=== PATIENT | male | born 1980 | race Caucasian/White ===

== ENCOUNTER 2022-02-22 18:16 | Observation (INO) ==
[2022-02-22] MEDS ORDERED: *HR* OxyCODONE Immed Rel 5 MG TABLET PO PRN (22:59)
[2022-02-22] MEDS ORDERED: Ondansetron 4 MG/2 ML VIAL IVP PRN (22:59)
[2022-02-22] MEDS ORDERED: *HR* Promethazine 25 MG/ML VIAL IM PRN (22:59)
[2022-02-22] MEDS ORDERED: *HR* HYDROcodone/Acet 5/325 mg TABLET PO PRN (22:59)
[2022-02-22] MEDS ORDERED: Acetaminophen 325 MG TABLET PO PRN (22:59)
[2022-02-22] MEDS ORDERED: Naloxone 0.4 MG/ML INJ IVP PRN (22:59)
[2022-02-23 03:32] LABS: Basophils % 0.2 %; Eosinophils # 0.1 K/mcL (0.0-0.6); Eosinophils % 0.7 %; Hematocrit 43.1 % (37.5-50.1); Hemoglobin 14.3 g/dL (12.9-16.9); Immature Granulocytes % 0.4 % (0-4); Lymphocytes # 2.6 K/mcL (0.6-4.6); Lymphocytes % 18.7 %; Mean Corpuscular HGB Conc 33.2 g/dL (31.6-35.5); Mean Corpuscular Volume 90.5 fL (83.0-100.0); Mean Platelet Volume 9.1 fL (9.4-12.4); Monocytes # 1.1 K/mcL (0.0-1.3); Neutrophils # 10.1 K/mcL (1.6-8.9); Platelet Count 365 K/mcL (140-400); Red Blood Count 4.76 M/mcL (4.19-5.50); Red Cell Distribution Width 13.3 % (11.5-14.5)
[2022-02-23 03:39] LABS: INR 1.1; Prothrombin Time 12.3 Seconds (9.4-12.1)
[2022-02-23 03:46] LABS: BUN/Creatinine Ratio 11 (6-26); Blood Urea Nitrogen 10 mg/dL (6-20); Calcium 9.2 mg/dL (8.6-10.3); Carbon Dioxide 30 mEq/L (23-29); Chloride 100 mEq/L (98-107); Glucose 109 mg/dL (70-105); Osmolality,Calculated 284 (280-300); Potassium 3.5 mEq/L (3.5-5.1); Sodium 137 mEq/L (136-145); eGFR For African Americans > 60 (> 60); eGFR For Non-African Americans > 60 (> 60)
[2022-02-23] MEDS ORDERED: Ondansetron 4 MG/2 ML VIAL ONE (10:13)
[2022-02-23] MEDS ORDERED: *HR* Propofol 200 MG/20 ML VIAL IVP ONE (10:13)
[2022-02-23] MEDS ORDERED: *HR* FentaNYL (PF) 100 MCG/2 ML VIAL ONE ×2 (10:13→11:58)
[2022-02-23] MEDS ORDERED: Lidocaine -MPF 2% 5 ML VIAL ONE (10:13)
[2022-02-23] MEDS ORDERED: *HR* Rocuronium Bromide 50 MG/5 ML VIAL ONE (10:13)
[2022-02-23] MEDS ORDERED: Lidocaine -MPF 4% 5 ML AMPUL ONE (10:13)
[2022-02-23] MEDS ORDERED: *HR* Midazolam HCl 2 MG/2 ML VIAL ONE (10:13)
[2022-02-23] MEDS ORDERED: Famotidine 20 MG/2 ML VIAL IVP ONE (10:17)
[2022-02-23] MEDS ORDERED: Acetaminophen IV 1,000 MG/100 ML BAG IVPB ONE ×2 (10:18→11:55)
[2022-02-23] MEDS ORDERED: Ondansetron 4 MG/2 ML VIAL IVP PRN ×2 (10:51→14:14)
[2022-02-23] MEDS ORDERED: *HR* HYDROmorphone PF 0.5 MG/0.5 ML SYRINGE IVP PRN (10:51)
[2022-02-23] MEDS ORDERED: 0.9 % Sodium Chloride 1,000 ML IVC SCH (13:15)
[2022-02-23] MEDS ORDERED: *HR* Promethazine 25 MG/ML VIAL IM PRN (14:14)
[2022-02-23] MEDS ORDERED: Acetaminophen 325 MG TABLET PO PRN (14:14)
[2022-02-23] MEDS ORDERED: CeFAZolin 2,000 MG/120 ML BAG IVPB ONE (14:14)
[2022-02-23] MEDS ORDERED: *HR* HYDROcodone/Acet 5/325 mg TABLET PO PRN (14:14)
[2022-02-23] MEDS ORDERED: Naloxone 0.4 MG/ML INJ IVP PRN (14:14)
[2022-02-23] MEDS: CeFAZolin 2,000 MG/120 ML BAG IVPB ONE ×2 (14:16→14:39)
[2022-02-23] MEDS: *HR* OxyCODONE Immed Rel 5 MG TABLET PO PRN ×2 (14:32→23:16)
[2022-02-24 06:21] VITALS: BP 116/89; PULSE 74; TEMP 97.6; O2SAT 93
[2022-02-24] MEDS: *HR* OxyCODONE Immed Rel 5 MG TABLET PO PRN (07:39)
== END 2022-02-24 10:35 | disposition home or self-care (01) ==
LOC: 3BNU → SUATTDRO 22:15
PROVIDERS: ADMIT Internal Medicine; ATTEND Registered Nurse